=== PATIENT | male | born 1970 | race Two or more races ===

== ENCOUNTER 2016-04-30 09:05 | Emergency (ER) | payer SELFPAY ==
[~2016-04-30] VITALS: Ht 172.7 cm; Wt 95.3 kg
[2016-04-30 09:20] VITALS: BP 162/89
[2016-04-30] MEDS ORDERED: HYDROCODONE/APAP 5/325MG TABLET. PO ONE (09:45)
[2016-04-30 09:47] LABS: BILIRUBIN,URINE NEGATIVE (NEG); GLUCOSE,URINE NEGATIVE (NEG); NITRITE,URINE NEGATIVE (NEG); PH,URINE 6.5; PROTEIN,URINE NEGATIVE (NEG-TRACE); UROBILINOGEN,URINE 0.2 mg/dL (0.2 mg/dL)
[2016-04-30 10:03] LABS: RBC,URINE OCC /HPF (0-2)
[2016-04-30 10:04] LABS: BACTERIA,URINE 0 /HPF (0-FEW); SQUAMOUS EPITHELIAL CELL,UR OCC /LPF; WBC,URINE 0 /HPF (0-4)
--- NOTE | 2016-04-30 10:12 | RAD ---
EXAM: Testicular sonogram. HISTORY: Testicular swelling and pain. TECHNIQUE: Grayscale and color Doppler sonographic imaging of the testes with spectral waveform analysis was performed. COMPARISON: None. FINDINGS: The right testis measures 4.3 x 2.8 x 2.2 cm and the left testis measures 4.3 x 2.8 x 1.7 cm. There is normal symmetric blood flow within both testes. No focal testicular parenchymal lesion is seen. There is no hydrocele or varicocele. There are 4 mm and 5 mm left epididymal cysts. IMPRESSION: 1. Small left epididymal cyst. 2. Otherwise, unremarkable testicular sonogram. Specifically, no findings correlate with reported testicular swelling and pain.
--- NOTE | 2016-04-30 10:22 | RAD ---
EXAM: Lumbar spine, 3 views. HISTORY: Pain. COMPARISON: None. FINDINGS: Frontal, lateral and coned sacral views of the lumbar spine are obtained. There is no listhesis. The vertebral bodies are normal in height. There is mild endplate remodeling at multiple levels. There is facet arthropathy predominantly at the lumbosacral junction. There are findings consistent with hernia repair. IMPRESSION: Mild degenerative change predominantly at the lumbosacral junction.
[2016-04-30] MEDS ORDERED: HYDR-971 PO (10:31)
--- NOTE | 2016-04-30 10:31 | PHYS DOC ---
Past Medical History Past Medical History: Diabetes-Type II, Hypertension Past Surgical History: Other Additional Past Surgical Histo: inguinal hernia Additional Information: Nonsmoker Alcohol Use: None Drug Use: None Adult General Chief Complaint Chief Complaint: LOWER BACK PAIN OR INJURY [facility] HPI Patient is a 45 year old male who presents with bilateral chronic pain for 2 days. He reports that the pain radiates to bilateral testicles. He also has low back pain that began after bending over at work yesterday. He has urinary frequency without dysuria. He has nausea without vomiting. He denies any focal weakness or numbness. He has not had any loss of bowel or bladder control or saddle anesthesia. He does not complain of any abdominal pain. The patient has a history of bilateral inguinal hernia and umbilical hernia repairs in the past. He does not have a PCP. The patient is [place]-speaking. BERNABE Carranza assists with translation. Review of Systems Review of Systems Constitutional: Denies fever or chills. [] GI: Denies abdominal pain, vomiting, bloody stools or diarrhea. Reports nausea. : Denies dysuria, hematuria. Reports urinary frequency with bilateral groin pain radiating to bilateral testicles. Musculoskeletal: Denies joint pain. Reports low-back pain. Integument: Denies rash or skin lesions. [] Neurologic: Denies headache, focal weakness or sensory changes. Denies incontinence or saddle anesthesia. All systems reviewed and negative unless otherwise stated in the HPI. Current Medications Current Medications Current Medications Medications (Trade) Dose Ordered Sig/Lisa Start Time Stop Time Status Last Admin Dose Admin Acetaminophen/ Hydrocodone Bitart (Lortab 5/325) 1 tab 1X ONCE 04/30/16 09:45 04/30/16 09:46 DC 04/30/16 10:16 1 TAB Allergies Allergies Allergies Coded Allergies Type Severity Reaction Last Updated Verified No Known Drug Allergies 04/30/16 No Physical Exam Physical Exam Constitutional: Well developed, well nourished, no acute distress, non-toxic appearance. [] HENT: Normocephalic, atraumatic, oropharynx moist. [] Eyes: PERRLA, EOMI, conjunctiva normal, no discharge. [] Neck: Normal range of motion, no tenderness, supple, no stridor. [] Cardiovascular: Heart rate regular rhythm, no murmur. [] Lungs & Thorax: Bilateral breath sounds clear to auscultation without wheezes, rales, or rhonchi. [] Abdomen: Bowel sounds normal, soft, left lower quadrant tenderness, no masses, no pulsatile masses. No hernia. Male : Tere, RN present during exam. Patient is uncircumcised. He has tenderness in bilateral testicles without significant swelling. No palpable masses in the inguinal canal. Skin: Warm, dry, no erythema, no rash. [] Back: Lumbar midline tenderness, no CVA tenderness. [] Extremities: No tenderness, ROM intact, no edema. Distal pulses equal bilaterally. [] Neurologic: Alert and oriented X 3, normal motor function, normal sensory function, no focal deficits noted. [] Psychologic: Affect normal, judgement normal, mood normal. [] Current Patient Data Vital Signs Vital Signs Date Time Temp Pulse Resp B/P Pulse Ox O2 Delivery O2 Flow Rate FiO2 04/30/16 10:16 16 98 Room Air 04/30/16 09:20 97.7 58 162/89 97.7 Lab Values Laboratory Tests Test 04/30/16 09:35 Urine Collection Type Unknown Urine Color Yellow Urine Clarity Clear Urine pH 6.5 Urine Specific [place] 1.010 Urine Protein Negativemg/dL (NEG-TRACE) Urine Glucose (UA) Negativemg/dL (NEG) Urine Ketones (Stick) Negativemg/dL (NEG) Urine Blood Negative (NEG) Urine Nitrite Negative (NEG) Urine Bilirubin Negative (NEG) Urine Urobilinogen Dipstick 0.2mg/dL (0.2 mg/dL) Urine Leukocyte Esterase Negative (NEG) Urine RBC Occ/HPF (0-2) Urine WBC 0/HPF (0-4) Urine Squamous Epithelial Cells Occ/LPF Urine Bacteria 0/HPF (0-FEW) Urine Mucus Slight/LPF EKG EKG [] Radiology/Procedures Radiology/Procedures REASON: bilateral testicular pain & swelling x3 days PROCEDURE: TESTICULAR/SCROTUM EXAM: Testicular sonogram. HISTORY: Testicular swelling and pain. TECHNIQUE: Grayscale and color Doppler sonographic imaging of the testes with spectral waveform analysis was performed. COMPARISON: None. FINDINGS: The right testis measures 4.3 x 2.8 x 2.2 cm and the left testis measures 4.3 x 2.8 x 1.7 cm. There is normal symmetric blood flow within both testes. No focal testicular parenchymal lesion is seen. There is no hydrocele or varicocele. There are 4 mm and 5 mm left epididymal cysts. IMPRESSION: 1. Small left epididymal cyst. 2. Otherwise, unremarkable testicular sonogram. Specifically, no findings correlate with reported testicular swelling and pain. REASON: low back pain after bending from fall yesterday PROCEDURE: LUMBAR SPINE 2-3V EXAM: Lumbar spine, 3 views. HISTORY: Pain. COMPARISON: None. FINDINGS: Frontal, lateral and coned sacral views of the lumbar spine are obtained. There is no listhesis. The vertebral bodies are normal in height. There is mild endplate remodeling at multiple levels. There is facet arthropathy predominantly at the lumbosacral junction. There are findings consistent with hernia repair. IMPRESSION: Mild degenerative change predominantly at the lumbosacral junction. Course & Med Decision Making Course & Med Decision Making Pertinent Labs and Imaging studies reviewed. (See chart for details) Patient presents with pain in bilateral groin with radiation to the testicles for 2 days as well as urinary frequency. He also has low back pain. On exam, his abdomen is soft and nontender. The testicles and scrotum are tender bilaterally without swelling or palpable masses. There is midline tenderness of the lumbar spine. Ultrasound of the testicles is unremarkable. X-ray of the lumbar spine shows degenerative changes without any acute findings. Urine is negative for infection. Patient is discharged home with prescription for Natalia. He is given contact information for urology for follow-up. Return precautions were discussed. He verbalizes understanding and agrees with plan. Dragon Disclaimer Dragon Disclaimer This electronic medical record was generated, in whole or in part, using a voice recognition dictation system. Departure Departure Impression: Primary Impression: Low back strain Additional Impression: Testicular pain Disposition: 01 HOME, SELF-CARE Condition: STABLE Referrals: HANDY RUBIO DO Patient Instructions: Back Pain, Adult, [id number], Testicular Problems and Self-Exam Additional Instructions: Your urine, ultrasound, and xray were normal. There was no hernia on your exam today. Please take the prescribed pain medication as directed. Do not drive or operate heavy machinery while taking pain medication. Please follow up with the urologist listed below if your pain continues. Return to the emergency department if you have any new or concerning symptoms. Scripts Hydrocodone/Apap 5-325 (Natalia 5-325 Tablet)1 Each Tablet1 Tab PO PRN Q6HRS PRN PAIN #20 TAB Prov:APOLINAR ARAUJO 04/30/16 Problem Qualifiers Primary Impression: Low back strain Encounter type: initial encounter Qualified Code: S39.012A - Strain of muscle, fascia and tendon of lower back, initial encounter APOLINAR ARAUJO Apr 30, 2016 10:31
== END 2016-04-30 10:45 | disposition home or self-care (01) ==
LOC: ER 09:05
DX: S39.012A Strain of muscle, fascia and tendon of lower back, initial encounter (principal); N50.811 Right testicular pain; N50.812 Left testicular pain; X58.XXXA Exposure to other specified factors, initial encounter; Y93.89 Activity, other specified; Y92.89 Other specified places as the place of occurrence of the external cause; Y99.8 Other external cause status
CPT/HCPCS: 72100; 76870; 81001; 99285-25

== ENCOUNTER 2017-09-14 15:13 | Emergency (ER) | payer SELFPAY ==
[2017-09-14] MEDS: IV NORMAL SALINE 1000ML BAG 1,000 ML IV (16:42)
[2017-09-14 16:44] LABS: ANION GAP 9 (6-14); BLOOD UREA NITROGEN 16 mg/dL (8-26); CALCIUM 8.8 mg/dL (8.5-10.1); CARBON DIOXIDE 25 mmol/L (21-32); CHLORIDE 106 mmol/L (98-107); CREATININE 1.1 mg/dL (0.7-1.3); GFR 72.1; GLUCOSE 79 mg/dL (70-99); POTASSIUM 3.4 mmol/L (3.5-5.1); SODIUM 140 mmol/L (136-145)
[2017-09-14 17:24] LABS: D-DIMER 0.39 ug/mlFEU (0.00-0.50)
[2017-09-14 18:51] LABS: TROPONIN BY ISTAT 0.02 ng/ml (<0.08)
== END 2017-09-14 19:39 | disposition home or self-care (01) ==
LOC: ER 15:13
DX: R07.89 Other chest pain (principal); F41.1 Generalized anxiety disorder; E11.9 Type 2 diabetes mellitus without complications; I10 Essential (primary) hypertension
CPT/HCPCS: 36415; 71045; 80048; 84484; 85379; 93005; 96374; 99285-25; J2060; J7030

== ENCOUNTER 2018-08-08 18:46 | Emergency (ER) | payer SELFPAY ==
[~2018-08-08] VITALS: Ht 162.6 cm; Wt 99.8 kg
[~2018-08-08 18:46] MED LIST: HYDR-3164 PO
[2018-08-08 19:15] VITALS: BP 146/78
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
[2018-08-08] MEDS ORDERED: CYCL10TA2 PO (21:24)
[2018-08-08] MEDS ORDERED: HYDR-2761 PO (21:24)
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
== END 2018-08-08 21:54 | disposition home or self-care (01) ==
LOC: ER 18:46
DX: S43.491A Other sprain of right shoulder joint, initial encounter (principal); S13.8XXA Sprain of joints and ligaments of other parts of neck, initial encounter; R51 Headache; R07.89 Other chest pain; I10 Essential (primary) hypertension; E11.9 Type 2 diabetes mellitus without complications; V43.52XA Car driver injured in collision with other type car in traffic accident, initial encounter; Y93.89 Activity, other specified; Y92.410 Unspecified street and highway as the place of occurrence of the external cause; Y99.8 Other external cause status
CPT/HCPCS: 70450; 71046; 72125; 73030; 99284-25

== ENCOUNTER 2021-03-24 16:09 | Emergency (ER) | payer SELFPAY ==
[~2021-03-24] VITALS: Ht 172.7 cm; Wt 90.0 kg
[~2021-03-24 16:09] MED LIST changes: +CYCL10TA19 PO; +CYCL5TAB PO; +DOXY100C3 PO; +HYDR-2761 PO
[2021-03-24 16:24] VITALS: BP 166/93
--- NOTE | 2021-03-24 17:25 | PHYS DOC ---
Past Medical History Past Medical History: Diabetes-Type II, Hypertension Past Surgical History: Other Additional Past Surgical Histo: inguinal hernia Smoking Status: Never Smoker Alcohol Use: None Drug Use: None General Adult EDM: Chief Complaint: DENTAL PROBLEM HPI: HPI: Patient is a 50 year old male with history of dental extraction of teeth 9, 10, 11 earlier today who presents with bleeding from his extraction sites. States that it has been bleeding ever since the surgery. He denies any injury to the area since his surgery. No blood thinning medications or antiplatelet medications. Denies any history of bleeding problems. Review of Systems: Review of Systems: Constitutional: Denies fever or chills. [] HENT: Reports bleeding from dental extraction site. Respiratory: Denies cough or shortness of breath. [] Cardiovascular: Denies chest pain or edema. [] GI: Denies nausea or vomiting Psychiatric: Denies depression or SI Heart Score: C/O Chest Pain: No Allergies: Allergies: Allergies Coded Allergies Type Severity Reaction Last Updated Verified No Known Drug Allergies 04/30/16 No Physical Exam: PE: Constitutional: no acute distress, holding bloody gauze in his mouth HENT: Stigmata of dental extraction of teeth 9, 10, 11. Open sockets. Well- formed clot in sockets 10 and 11. Frequent oozing out of socket 9. No pulsatile bleeding. Slows with direct pressure. Cardiovascular: Normal rate. Lungs & Thorax: Normal work of breathing. Satting well on room air. Skin/extremity: Warm, well perfused extremities. Neurologic: Alert and oriented X 3, normal motor function, normal sensory function, no focal deficits noted. [] Psychologic: Affect normal, judgement normal, mood normal. [] Current Patient Data: Vital Signs: Vital Signs Date Time Temp Pulse Resp B/P (MAP) Pulse Ox O2 Delivery O2 Flow Rate FiO2 03/24/21 16:24 98.1 69 12 166/93 (117) 98 98.1 EKG: EKG: [] Radiology/Procedures: Radiology/Procedures: [] Course & Med Decision Making: Course & Med Decision Making Pertinent Labs and Imaging studies reviewed. (See chart for details) Patient 50-year-old male with history of a dental extraction of teeth 9, 10, 11 earlier today who presents with bleeding. It appears to be coming from socket #9. No anticoagulants, antiplatelets, or bleeding disorder history. Bleeding slows with direct pressure. I asked the patient to hold direct pressure with gauze for 30 minutes, and bleeding has stopped with good formation of clot in the socket. Feel he is safe for discharge. Do not feel that any lab work is required at this time. Will f/u with his dentist. [id number] Britt[address] Disclaimer: Brittny Disclaimer: This electronic medical record was generated, in whole or in part, using a voice recognition dictation system. Departure Departure Impression: Primary Impression: Hemorrhage of tooth socket Disposition: HOME / SELF CARE / HOMELESS Condition: STABLE Referrals: NO PCP (PCP) Additional Instructions: Please hold pressure with gauze if bleeding returns. Please follow-up with your dentist. If bleeding does not stop after holding pressure for an hour straight, please return to the emergency department for reevaluation. LOBITO BETANCOURT MD Mar 24, 2021 17:25
== END 2021-03-24 18:12 | disposition home or self-care (01) ==
LOC: ER 16:09
DX: K91.840 Postprocedural hemorrhage of a digestive system organ or structure following a digestive system procedure (principal); E11.9 Type 2 diabetes mellitus without complications; I10 Essential (primary) hypertension
CPT/HCPCS: 99281